=== PATIENT | male | born 2005 | race Caucasian/White ===

== ENCOUNTER 2025-06-13 16:29 | Emergency (ER) | payer OTHER, SELFPAY ==
--- NOTE | ~2025-06-13 | US_ITS ---
CLINICAL HISTORY: R testicular mass US Scrotum with Doppler Comparison: None provided Findings: Right testicle normal echotexture, 4.9 x 2.0 x 3.2 cm. Left testicle normal echotexture, 5.0 x 2.1 x 3.0 cm. Color Doppler and arterial/venous spectral tracings demonstrate increased blood flow to the left testicle and epididymis. There is a hypoechoic focus within the right epididymal head measuring 8 mm corresponding to the clinically palpable area. No hydroceles or varicoceles. IMPRESSION: 1. Findings suggestive of left-sided epididymo-orchitis. 2. Indeterminate hypoechoic focus within the right epididymal head corresponding to the clinically palpable area. This document has been electronically signed by: Finesse Meza MD on 06/13/2025 18:20:31
[2025-06-13 16:38] VITALS: BP 125/60; PULSE 67; RESP 16; TEMP 36.9; O2SAT 98; BMI 18.5
--- NOTE | 2025-06-13 16:40 | ED_ITS ---
HPI - General Adult General Chief complaint: Urogenital-Male Stated complaint: lump on testicle Time Seen by Provider: 06/13/25 20:04 Source: patient Mode of arrival: ambulatory Limitations: no limitations History of Present Illness ED Provider: Porsha Viveros PA-C HPI narrative: Patient is a 19 year old assigned male at with no reported medical history presenting to the emergency department today with right sided testicular pain. Patient states that he has had a lump on the right side of his testicle for awhile but now he is having testicular pain that is worsening over the last week. Patient denies any dizziness, lightheadedness, abdominal pain, nausea, vomiting, fever, chills, blurry vision, double vision, loss of vision, chest pain, difficulty breathing, shortness of breath, back pain, night sweats, pain with urination, increased urinary frequency, increased urinary urgency, blood in his urine or stool, syncope or a near syncopal episode, recent trauma or falls, bowel incontinence, bladder incontinence, or any other complaints at this time. Onset (ago): week(s) (1) Relieving factors: none Exacerbating factors: none Associated symptoms: denies other symptoms Treatments prior to arrival: none Related Data Previous Rx's ?Medication ?Instructions ?Recorded doxycycline hyclate 100 mg tablet 100 mg PO BID 7 days #14 tabs 06/13/25 Allergies Allergy/AdvReac Type Severity Reaction Status Date / Time No Known Allergies Allergy Verified 06/13/25 16:38 Review of Systems Constitutional: Constitutional: Reports no additional constitutional complaints, Denies chills, Denies fever(s) and Denies night sweats Eyes: Eyes: Reports no additional eye complaints, Denies blurry vision, Denies change in vision, Denies diplopia, Denies eye discharge, Denies loss of vision and Denies eye pain ENT: Denies dizziness Cardiovascular: Cardiovascular: Reports no additional cardiovascular complaints, Denies chest pain, Denies lightheadedness, Denies Loss of Consciousness and Denies dyspnea Respiratory: Respiratory: Reports no additional respiratory complaints and De nies dyspnea Gastrointestinal: Gastrointestinal: Reports no additional gastrointestinal complaints, Denies abdominal pain, Denies melena, Denies hematochezia, Denies change in bowel habits and Denies change in stool character Genitourinary: Genitourinary: Reports no additional male genitourinary complaints, Denies hematuria, Denies oliguria, Denies difficulty urinating, Denies dysuria, Reports testicular mass, Reports testicular pain, Denies urinary frequency, Denies urinary hesitancy, Denies urinary incontinence and Denies urinary urgency Musculoskeletal: Musculoskeletal: Reports no additional musculoskeletal complaints, Denies numbness and Denies tingling Neurologic: Denies dizziness, Denies loss of vision, Denies numbness and Denies tingling Psychiatric: Psychiatric: Reports no additional psychiatric complaints Endocrine: Endocrine: Reports no additional endocrine complaints Hematologic/Lymphatic: Hematologic/Lymphatic: Reports no additional hematologic/lymphatic complaints Allergic/Immunologic: Allergic/Immunologic: Reports no additional allergic/immunologic complaints [facility] Past Medical History Attestation statement: The following information was validated with the patient. Source: old records reviewed and nursing notes reviewed Social History Social History Advance Directives: No Advance Directives Information Provided: No Physical Exam ED Vital Signs: Vital Signs - 24 hr 06/13/25 16:38 06/13/25 19:38 Temperature 98.4 F 97.6 F Pulse Rate 67 64 Respiratory Rate 16 18 Blood Pressure 125/60 128/80 Pulse Oximetry 98 98 Oxygen Delivery Method Room Air Room Air BMI result Body Mass Index 18.5 Const General: cooperative, no acute distress, alert and awake Nutritional Appearance: well nourished Orientation/consciousness: patient oriented x3 HENMT Head: Yes normal to inspection and Yes atraumatic Ears: hearing grossly normal bilaterally and external ears normal General nose exam: Normal external nose present, no nasal discharge noted and no epistaxis Face and sinus: Yes normal facial exam, No abrasion and No laceration Mouth: Normal oral and palatal mucosa present, no drooling and no muffled voice Eyes General: appearance normal, both eyes and all related structures Periorbital: periorbital findings normal Eyelids: Yes eyelids normal Conjunctivae: conjunctivae normal Pupils: Equal, round and reactive pupils present EOM: EOMs intact bilaterally Neck Neck: Yes normal visual inspection, Yes full ROM and Yes no lymphadenopathy Resp Effort & Inspection: normal respiratory effort and able to speak in complete sentences Neuro General: patient oriented x3, moves all extremities and CN's II-XI intact bilaterally Cranial nerves: Yes Equal, round and reactive pupils present Cognition (Neuro): normal cognition Extrem General: Yes normal to inspection, Yes full ROM and Yes capillary refill normal Psych Appearance: grossly normal Mental Status: mental status grossly normal Affect: normal affect Attitude: cooperative Thought process: Normal thought process present Thought content: Normal thought content present Insight: Good insight present (Psych) Course Course Course Narrative: This is a rapid medical exam performed by Annabelle Sethi NP: Additional HPI, ROS, PE not included below will be deferred to primary provider. Patient is a 19-year-old male presenting from urgent care for evaluation of mass to right testicle for the past year. Patient evaluated by his gang sawyer for same around 1 yr ago, told not to worry unless it became painful. States over past few weeks, area has been mildly tender, rates at 3/10. Denies any urinary sxs or abnormal penile discharge. Plan: u/s Medical Decision Making Medical Decision Making [facility] Narrative: Patient is a 19 year old assigned male at with no reported medical history presenting to the emergency department today with right sided testicular pain. Patient's physical exam was unremarkable - scrotal exam was deferred. Patient's scrotal US showed evidence of epididymitis. I explained my physical exam findings as well as all test results to the patient. I answered all questions asked by the patient. Patient was treated with IM Ceftriaxone and PO Doxycycline. STI testing pending. I stressed the importance of the patient taking his medication as directed (either prescribed or as the over the counter packaging recommends). I stressed the importance of the patient following up with his primary care provider. I stressed the importance of the patient returning to the emergency department immediately if his symptoms were to worsen or if he were to develop any dizziness, shortness of breath, difficulty breathing, chest pain, blurry vision, loss of vision, nausea, vomiting, abdominal pain, fever, chills, back pain, or any other complaints. Patient verbalized agreement and understanding with this treatment plan and discharge. Differential Diagnosis Differential Diagnoses: The differential diagnosis associated with the presenta tion includes Epididymitis Scrotal pain Scrotal cyst Admission/Observation Consideration of admission/observation: Escalation of care including admission/observation considered Patient would have been admitted to the hospital had his work up had any findings where hospital admission was appropriate and his clinical presentation warranted hospital admission. Lab Data [facility] Lab Attestation statement: I reviewed the patient's lab results. My interpretation of these results are in the [facility] Rationale portion of this note. Labs: Lab Results 06/13/25 Range/Units 20:17 Urine Color Yellow Urine Appearance Clear Urine pH 6.0 (5.0-9.0) Ur Specific [place] 1.025 (1.005-1.025) Urine Protein Negative (Neg-Trace) mg/dL Urine Glucose (UA) Negative (Negative) mg/dL Urine Ketones Trace (Negative) mg/dL Urine Blood Negative (Negative) Urine Nitrite Negative (Negative) Ur Leukocyte Esterase Negative (Negative) Independent Interpretation I performed an independent interpretation of an: Ultrasound Interpretation: My interpretation is in agreement with the radiologist's impression of this imaging study. CLINICAL HISTORY: R testicular mass US Scrotum with Doppler Comparison: None provided Findings: Right testicle normal echotexture, 4.9 x 2.0 x 3.2 cm. Left testicle normal echotexture, 5.0 x 2.1 x 3.0 cm. Color Doppler and arterial/venous spectral tracings demonstrate increased blood flow to the left testicle and epididymis. There is a hypoechoic focus within the right epididymal head measuring 8 mm corresponding to the clinically palpable area. No hydroceles or varicoceles. IMPRESSION: 1. Findings suggestive of left-sided epididymo-orchitis. 2. Indeterminate hypoechoic focus within the right epididymal head corresponding to the clinically palpable area. This document has been electronically signed by: Finesse Meza MD on 06/13/2025 18:20:31 Dictated By: Finesse Meza MD Signed By: Electronically signed by Finesse Meza MD 06/13/25 7021 Radiology Impression Discussion of test interpretation with radiology: I have reviewed the radiologist's reading. Prescription Management I considered prescription management with: Antibiotic (patient prescribed antibiotic for epididymitis) Discharge Plan Discharge Clinical Impression: Epididymitis Patient Disposition: Home, Self-Care Instructions: Epididymitis (ED) Additional Instructions: Take your antibiotic as prescribed. IF you are prescribed medications and/or you are taking over the counter medications - it is very important you continue to do so as prescribed / directed unless told otherwise. Follow up with a primary care provider. Return to the emergency department immediately if your symptoms worsen or if you develop any numbness, tingling, dizziness, shortness of breath, difficulty breathing, chest pain, blurry vision, loss of vision, nausea, vomiting, abdominal pain, fever, chills, back pain, or any other complaints. If you do not have a primary care provider - call any of the below numbers to establish and follow up with a primary care provider. [facility] ([place]) [phone] [place] [address], [address] [facility] ([facility]) [phone] [place] [address], [address] [facility], [address] [facility] ([address] [place]) [phone] [place] [address], [address] [facility], [address] [facility] ([place]) [phone] [place] [address] [address] [facility], [address] [facility] [phone] [place] [address], [id number] Please see the information below about our Patient Portal. If you are not yet enrolled in the [facility] Patient Portal, you will receive an enrollment email invitation following your visit to any [facility] setting. You may also self-enroll in the Patient Portal by visiting our website: [email or web address] The following information is required to access the Patient Portal: - Your [facility] Medical Record Number - Your personal home email address (must match what is in your electronic medical record, Registration staff can assist with this) - Name - Date of Capabilities of the Patient Portal: - Message some providers - View upcoming appointments - Access your health summary, medical history, and visit history - View current conditions and allergies - View procedure and lab results - View your medications, including guidelines, side effects, and precautions - Complete pre-appointment questionnaires requested by your provider - Ready summary reports of your office visits and procedures To access the Patient Portal Mobile [employer], follow these directions: - Search [employer] in the Olinda Store or [employer] Play Store - Download the Olinda - Search for [facility] - Enter your login/password Prescriptions: New doxycycline hyclate 100 mg tablet 100 mg PO BID 7 Days Qty: 14 0RF Print Language: Citizen Of [place]
[2025-06-13 19:38] VITALS: BP 128/80; PULSE 64; RESP 18; TEMP 36.4; O2SAT 98
[2025-06-13 20:31] LABS: Appearance Urine Clear; Glucose Urine UA Negative (Negative); PH 6.0 (5.0-9.0); Specific Gravity - Urine 1.025 (1.005-1.025)
[2025-06-13 20:56] VITALS: BP 128/80; PULSE 64; RESP 18; TEMP 36.4; O2SAT 98
[2025-06-13] MEDS: cefTRIAXone sodium 500 MG, Lidocaine HCl 1 % MPF 1 ML IM (21:05)
--- NOTE | 2025-06-13 21:05 | PC.NURSE ---
@approximately 2049 this RN was grabbbing meds for this pt, pt not in room and pt left w/o D/C paperwork
--- NOTE | 2025-06-13 21:07 | PC.NURSE ---
called back in and medicated as ordered
[2025-06-13 21:58] LABS: CT PCR Urine NOT DETECTED (Not Detect.); NG PCR Urine NOT DETECTED (Not Detect.)
== END 2025-06-13 20:56 | disposition home or self-care (01) ==
PROVIDERS: Physician Assistant; Emergency Provider Emergency Medicine
DX: N45.1 Epididymitis (principal)
CPT/HCPCS: 76870; 81003; 87491; 87591; 96372; 99282; 99284; J0696; J2003

== ENCOUNTER → 2025-06-13 16:42 | Outpatient (BNV) | payer OTHER, SELFPAY | PROVIDERS: Visit Provider Radiology Diagnostic Radiology | DX: N50.3 Cyst of epididymis (principal) | CPT/HCPCS: 76870 ==